=== PATIENT | female | born 1985 | race African-American/Black ===

== ENCOUNTER 2018-11-22 08:05 | Emergency (ER) | payer MEDICAID ==
[~2018-11-22] VITALS: Ht 185.4 cm; Wt 87.0 kg
[2018-11-22] MEDS ORDERED: IBUPROFEN 600MG TABLET PO ONE (10:30)
[2018-11-22 10:55] VITALS: BP 122/66
== END 2018-11-22 11:30 | disposition home or self-care (01) ==
LOC: ER 08:05
DX: S60.021A Contusion of right index finger without damage to nail, initial encounter (principal); S60.031A Contusion of right middle finger without damage to nail, initial encounter; W01.0XXA Fall on same level from slipping, tripping and stumbling without subsequent striking against object, initial encounter; Y93.89 Activity, other specified; Y92.89 Other specified places as the place of occurrence of the external cause; Y99.8 Other external cause status
CPT/HCPCS: 73130; 99283; Z7610

== ENCOUNTER 2019-06-11 23:00 | Emergency (ER) | payer MEDICAID ==
[~2019-06-11] VITALS: Ht 185.4 cm; Wt 84.0 kg
[2019-06-12 01:09] LABS: EOSINOPHILS % 0.8 % (0.0-5.0); HEMOGLOBIN. 12.1 g/dL (12.0-16.0); LYMPHOCYTES % 46.2 % (20.0-50.0); MEAN CORPUSCULAR HEMOGLOBIN 30.3 pg (28.0-32.0); MEAN CORPUSCULAR VOLUME 87.6 fL (81.0-99.0); MEAN PLATELET VOLUME 7.3 fl (7.4-10.4); MONOCYTES % 8.6 % (2.0-8.0); NEUTROPHILS % 43.4 % (40.0-76.0); PLATELET 227 x1000/uL (130-400); RED CELL DISTRIBUTION WIDTH 14.9 % (11.6-14.6)
[2019-06-12 01:17] LABS: CHLORIDE 108 mEq/L (98-107)
[2019-06-12] MEDS ORDERED: KETOROLAC 30MG/ML VIAL IV ONE (02:45)
[2019-06-12 04:35] VITALS: BP 131/60
== END 2019-06-12 04:46 | disposition home or self-care (01) ==
LOC: ER 23:00
DX: R06.02 Shortness of breath (principal); I10 Essential (primary) hypertension
CPT/HCPCS: 36415; 71045; 80053; 83880; 84484; 85025; 85379; 93005; 96374; 99284; J1885; Z7610

== ENCOUNTER 2020-12-07 12:10 | Emergency (ER) | payer MEDICAID ==
[~2020-12-07] VITALS: Ht 188 cm; Wt 86.0 kg
[2020-12-07] MEDS ORDERED: T3 PO (12:51)
[2020-12-07] MEDS ORDERED: AMOX-494 MT (12:51)
[2020-12-07] MEDS ORDERED: IBUP-2029 MT (12:54)
[2020-12-07] MEDS ORDERED: ACETAMINOPHEN WITH CODEINE 300/30MG TABLET PO ONE (13:00)
[2020-12-07 13:09] VITALS: BP 120/78
== END 2020-12-07 13:10 | disposition home or self-care (01) ==
LOC: ER 12:10
DX: K08.89 Other specified disorders of teeth and supporting structures (principal); I10 Essential (primary) hypertension; B20 Human immunodeficiency virus [HIV] disease; Z98.890 Other specified postprocedural states
CPT/HCPCS: 99283

== ENCOUNTER 2021-02-11 11:34 | Emergency (ER) | payer MEDICAID ==
[~2021-02-11] VITALS: Ht 182.9 cm; Wt 73.0 kg
[~2021-02-11 11:34] MED LIST: AMOX-494 MT; IBUP-2029 MT; T3 PO
[2021-02-11 11:35] VITALS: BP 145/83
[2021-02-11] MEDS ORDERED: LORAZEPAM 0.5MG TABLET PO ONE (12:30)
[2021-02-11 13:44] LABS: CHLORIDE 103 mEq/L (98-107)
[2021-02-11 13:45] LABS: BASOPHILS % 0.5 % (0.0-2.0); EOSINOPHILS % 0.2 % (0.0-5.0); HEMATOCRIT. 40.5 % (36.0-48.0); HEMOGLOBIN. 14.1 g/dL (12.0-16.0); LYMPHOCYTES % 18.9 % (20.0-50.0); MEAN CORPUSCULAR HEMOGLOBIN 29.1 pg (28.0-32.0); MEAN CORPUSCULAR VOLUME 83.9 fL (81.0-99.0); MEAN PLATELET VOLUME 7.3 fl (7.4-10.4); MONOCYTES % 6.9 % (2.0-8.0); NEUTROPHILS % 73.5 % (40.0-76.0); PLATELET 355 x1000/uL (130-400); RED BLOOD CELL COUNT 4.82 mill/uL (4.2-5.4); RED CELL DISTRIBUTION WIDTH 14.8 % (11.6-14.6)
[2021-02-11 13:50] LABS: ETHANOL BLOOD 64 mg/dL
[2021-02-11 14:34] LABS: CLARITY URINE CLEAR (CLEAR); COLOR URINE YELLOW (YELLOW); KETONES URINE 3+ (NEGATIVE); LEUKOCYTE ESTERASE URINE NEGATIVE (NEGATIVE); NITRITE URINE NEGATIVE (NEGATIVE); OCCULT BLOOD URINE NEGATIVE (NEGATIVE); PH URINE 5.5 (4.5-8.0); PROTEIN URINE TRACE (NEGATIVE); SPECIFIC GRAVITY URINE 1.016 (1.005-1.030); UROBILINOGEN URINE 0.2 E.U./dL (0.2-1.0)
[2021-02-11 14:48] LABS: *COCAINE SCREEN URINE NEGATIVE (NEGATIVE)
[2021-02-11 14:49] LABS: *BARBITURATES SCREEN URINE NEGATIVE (NEGATIVE); METHADONE URINE SCREEN NEGATIVE (NEGATIVE); OPIATES URINE SCREEN NEGATIVE (NEGATIVE); PHENCYCLIDINE URINE SCREEN NEGATIVE (NEGATIVE)
[2021-02-11 14:50] LABS: *AMPHETAMINES SCREEN URINE PRESUMTIVE POSITIVE (NEGATIVE); *BENZODIAZEPINES SCREEN URINE NEGATIVE (NEGATIVE); CANNABINOID URINE SCREEN PRESUMTIVE POSITIVE (NEGATIVE)
== END 2021-02-11 15:10 | disposition home or self-care (01) ==
LOC: ER 11:34
DX: F41.9 Anxiety disorder, unspecified (principal); F12.10 Cannabis abuse, uncomplicated; Z98.890 Other specified postprocedural states; Z79.899 Other long term (current) drug therapy
CPT/HCPCS: 36415; 80053; 80305; 80320; 81003; 85025; 99283; G0480

== ENCOUNTER 2021-05-04 11:56 | Emergency (ER) | payer MEDICAID ==
[~2021-05-04] VITALS: Ht 185.4 cm; Wt 86.0 kg
[2021-05-04 12:00] VITALS: BP 126/77
== END 2021-05-04 18:34 | disposition left against medical advice (07) ==
LOC: ER 11:56
DX: R51.9 Headache, unspecified (principal); I49.9 Cardiac arrhythmia, unspecified; Z53.21 Procedure and treatment not carried out due to patient leaving prior to being seen by health care provider
CPT/HCPCS: 93005

== ENCOUNTER 2021-11-15 00:14 | Emergency (ER) | payer MEDICAID ==
[~2021-11-15] VITALS: Ht 185.4 cm; Wt 77.0 kg
[2021-11-15 00:21] VITALS: BP 148/97
== END 2021-11-15 00:56 ==
LOC: ER 00:14
DX: Z02.79 Encounter for issue of other medical certificate (principal); B20 Human immunodeficiency virus [HIV] disease
CPT/HCPCS: 99283

== ENCOUNTER 2023-02-10 12:50 | Emergency (ER) | payer MEDICAID ==
[~2023-02-10] VITALS: Ht 167.6 cm; Wt 80.0 kg
[2023-02-10 12:53] VITALS: TEMP 98.3; O2SAT 100
[2023-02-10] MEDS ORDERED: ONDANSETRON HCL 4MG/2ML INJ IV STA (13:17)
[2023-02-10] MEDS ORDERED: KETOROLAC 30MG/ML VIAL IV STA (13:17)
[2023-02-10] MEDS ORDERED: LORAZEPAM 2MG/ML CPJ IV ONE (13:30)
[2023-02-10] MEDS ORDERED: SODIUM CHLORIDE 0.9% 1,000 ML IV ONE (13:30)
[2023-02-10] MEDS ORDERED: FAMOTIDINE 20MG/2ML VIAL IV ONE (13:30)
[2023-02-10 14:10] LABS: CLARITY URINE CLEAR (CLEAR); COLOR URINE YELLOW (YELLOW); GLUCOSE URINE NEGATIVE (NEGATIVE); KETONES URINE NEGATIVE (NEGATIVE); LEUKOCYTE ESTERASE URINE NEGATIVE (NEGATIVE); NITRITE URINE NEGATIVE (NEGATIVE); OCCULT BLOOD URINE 2+ (NEGATIVE); PH URINE 6.5 (4.5-8.0); PROTEIN URINE NEGATIVE (NEGATIVE); SPECIFIC GRAVITY URINE 1.003 (1.005-1.030); UROBILINOGEN URINE 0.2 E.U./dL (0.2-1.0)
[2023-02-10 14:18] LABS: HCG SCREEN NEGATIVE
[2023-02-10 14:21] LABS: SQUAMOUS EPITHELIAL CELL URINE RARE /lpf (RARE/1+); WBC URINE 0-2 /hpf (0-2)
[2023-02-10 14:22] LABS: BACTERIA URINE TRACE; YEAST URINE NONE SEEN
[2023-02-10 14:31] LABS: ETHANOL BLOOD 16 mg/dL (-10); NT PRO B-TYPE NATRIURETIC PEP 458 pg/mL (5-125); TROPONIN I HIGH SENSITIVITY 14 ng/L (<54)
[2023-02-10 15:06] LABS: BASOPHILS % 0.8 % (0.0-2.0); HEMATOCRIT. 41.9 % (36.0-48.0); HEMOGLOBIN. 14.1 g/dL (12.0-16.0); LYMPHOCYTES % 25.9 % (20.0-50.0); MEAN CORPUSCULAR HEMOGLOBIN 29.4 pg (28.0-32.0); MEAN CORPUSCULAR HGB CONC 33.7 g/dL (31.0-37.0); MEAN CORPUSCULAR VOLUME 87.1 fL (81.0-99.0); MEAN PLATELET VOLUME 7.5 fl (7.4-10.4); MONOCYTES % 9.6 % (2.0-8.0); NEUTROPHILS % 63.7 % (40.0-76.0); PLATELET 379 x1000/uL (130-400); RED BLOOD CELL COUNT 4.81 mill/uL (4.2-5.4); RED CELL DISTRIBUTION WIDTH 15.2 % (11.6-14.6); WHITE BLOOD COUNT 7.1 x1000/uL (4.5-11.0)
[2023-02-10 15:10] LABS: CHLORIDE 109 mEq/L (98-107); INDEX HEMOLYSI 1 (1-3); INDEX ICTERIC 1 (1-4); INDEX LIPEMIC 1 (1-3); SODIUM 137 mEq/L (136-145)
[2023-02-10 15:18] LABS: ALANINE AMINOTRANSFERASE 21 IU/L (13-61); ASPARTATE AMINOTRANSFERASE 16 IU/L (15-37); BILIRUBIN TOTAL 0.9 mg/dL (0.1-1.0); CALCIUM 8.3 mg/dL (8.5-10.1); CARBON DIOXIDE 20 mEq/L (21-32); CREATININE 0.7 mg/dL (0.6-1.3); GLUCOSE 117 mg/dL (70-105); PROTEIN TOTAL 7.6 g/dL (6.0-8.3); UREA NITROGEN BLOOD 8 mg/dL (7-21)
[2023-02-10 15:25] LABS: POTASSIUM 2.8 mEq/L (3.5-5.1)
[2023-02-10] MEDS ORDERED: KCL 20MEQ/100ML PREMIX 100 ML IV NR (15:45)
[2023-02-10] MEDS ORDERED: POTASSIUM CHLORIDE 20MEQ TABLET SR PO NR (15:45)
[2023-02-10 17:15] VITALS: BP 130/97; PULSE 93; RESP 16
== END 2023-02-10 17:43 | disposition home or self-care (01) ==
LOC: ER 12:50
DX: E87.6 Hypokalemia (principal); F41.9 Anxiety disorder, unspecified; E86.0 Dehydration; I10 Essential (primary) hypertension; F12.90 Cannabis use, unspecified, uncomplicated; F10.129 Alcohol abuse with intoxication, unspecified; Y90.9 Presence of alcohol in blood, level not specified; Z85.9 Personal history of malignant neoplasm, unspecified
CPT/HCPCS: 80053; 81003; 80320; 84703; 83880; 83690; 85025; 84484; 36415; 71045; 96361; 96365; 96375; 99284; J3490; J1885; J2060; J2405; J3480; J7030; Z7610 ×4; G0480